=== PATIENT | male | born 1950 | race Caucasian/White ===

== ENCOUNTER 2022-09-17 10:37 | Emergency (ER) | payer MEDICARE ==
[~2022-09-17] VITALS: Ht 175.3 cm; Wt 87.0 kg
[~2022-09-17 10:37] MED LIST: LISINOP/HCTZ1 TA2 PO; OMEPRAZOLE20 M2 PO
[2022-09-17 10:48] VITALS: BP 158/106
[2022-09-17 11:00] VITALS: BP 148/102
[2022-09-17 11:13] VITALS: BP 143/92
[2022-09-17] MEDS ORDERED: PAXLOVID PO (11:38)
[2022-09-17 11:39] VITALS: BP 143/92
== END 2022-09-17 11:48 | disposition home or self-care (01) ==
LOC: ED 10:37
DX: U07.1 COVID-19 (principal); R05.9 Cough, unspecified; R11.2 Nausea with vomiting, unspecified; R19.7 Diarrhea, unspecified; I10 Essential (primary) hypertension; K21.9 Gastro-esophageal reflux disease without esophagitis; F17.200 Nicotine dependence, unspecified, uncomplicated